=== PATIENT | female | born 1995 ===

== ENCOUNTER 2019-10-20 18:44 | Outpatient (REF) | payer MEDICAID, OTHER, SELFPAY ==
[2019-10-20 19:38] LABS: HCT 35.8 % (36.0-46.0); HGB 12.1 g/dL (12.0-15.5); Mean Corp. HGB Concentration 33.8 g/dL (32.0-36.0); Mean Corpuscular Hemoglobin 30.9 pg (27.0-33.0); Mean Corpuscular Volume 91.6 fL (80-95); Mean Platelet Volume 10.4 fL (8.0-11.0); Platelet Count 296 x1000/uL (130-400); RBC 3.91 m/cumm (4.00-5.20); White Blood Cell Count 12.12 k/cumm (4.4-10.8)
[2019-10-20 19:56] LABS: Iron 81 ug/dL (50-170); Total Iron Binding Capacity 492 ug/dL (250-450); Transferrin Sat 16 % (15-50)
[2019-10-20 20:25] LABS: Ferritin 30 ng/mL (8-252); TSH (W/Ref FT4) 0.92 uIU/mL (0.36-3.74)
== END 2019-10-20 19:04 ==
LOC: NCHCN 18:44
PROVIDERS: Visit Provider Nurse Practitioner Family
DX: R53.83 Other fatigue (principal); F41.8 Other specified anxiety disorders
CPT/HCPCS: 85027; 82728; 83540; 83550; 84443